=== PATIENT | female | born 1995 | race Caucasian/White ===

== ENCOUNTER 2017-09-08 01:09 | Emergency (ER) | payer SELFPAY ==
[~2017-09-08] VITALS: Ht 162.6 cm; Wt 98.3 kg
[~2017-09-08 01:09] MED LIST: DOCU-131 PO; HYDR-3240 PO; LABE200T3 PO; PREN1TAB25 PO
[2017-09-08 01:39] LABS: HCG UR LOT HCG7030192
[2017-09-08 02:18] LABS: HCG UR OBC PASS
[2017-09-08] MEDS ORDERED: SODIUM CHLORIDE 0.9% 1,000ML IVBOLUS ONE (02:30)
[2017-09-08] MEDS ORDERED: SODIUM CHLORIDE FLUSH 10ML SYR IVF ONE (02:30)
[2017-09-08 02:34] LABS: HEMATOCRIT 44.5 % (34.6-47.8); HEMOGLOBIN 15.3 g/dL (11.7-16.4)
[2017-09-08 02:42] LABS: BLOOD UREA NITROGEN 10 mg/dL (7-18)
[2017-09-08 02:47] LABS: ASPARTATE AMINO TRANSFERASE 23 U/L (15-37)
[2017-09-08 07:06] VITALS: BP 133/72
[2017-09-08] MEDS ORDERED: ACETAMINOPHEN 500 MG TABLET PO ONE (08:00)
== END 2017-09-08 08:03 | disposition home or self-care (01) ==
LOC: ED 02:12
DX: R10.2 Pelvic and perineal pain (principal)
CPT/HCPCS: 36415; 74177; 76830; 80053; 81001; 81025; 84703; 85025; 87077; 87086; 87210; 87491; 87591; 87808; 96360; 99285; J7030; 87186

== ENCOUNTER 2018-07-30 20:45 | Emergency (ER) | payer BC ==
[~2018-07-30] VITALS: Ht 162.6 cm; Wt 106.0 kg
[~2018-07-30 20:45] MED LIST changes: -LABE200T3 PO; +LABE200T6 PO
[2018-07-30 22:03] VITALS: BP 136/80
== END 2018-07-30 22:05 | disposition home or self-care (01) ==
LOC: ED 21:59
DX: O26.892 Other specified pregnancy related conditions, second trimester (principal); R10.31 Right lower quadrant pain; R10.32 Left lower quadrant pain; R10.30 Lower abdominal pain, unspecified; Z3A.15 15 weeks gestation of pregnancy; W01.0XXA Fall on same level from slipping, tripping and stumbling without subsequent striking against object, initial encounter; Y93.89 Activity, other specified; Y99.8 Other external cause status; Y92.89 Other specified places as the place of occurrence of the external cause
CPT/HCPCS: 76815; 99284

== ENCOUNTER → 2018-08-13 | Outpatient (CLI) | payer BC | END | disposition home or self-care (01) | LOC: CFH 09:45 | PROVIDERS: ATTEND Obstetrics & Gynecology | DX: Z34.80 Encounter for supervision of other normal pregnancy, unspecified trimester (principal); K80.20 Calculus of gallbladder without cholecystitis without obstruction; R16.1 Splenomegaly, not elsewhere classified; R11.0 Nausea | CPT/HCPCS: 76700 ==

== ENCOUNTER 2018-12-19 09:23 | Outpatient (CLI) | payer BC ==
[~2018-12-19] VITALS: Ht 162.6 cm; Wt 106.8 kg
[2018-12-19 09:30] VITALS: BP 134/89
[2018-12-19] MEDS ORDERED: BETAMETHASONE 6 MG/ML, 5ML IM ONE (09:48)
[2018-12-19 09:54] LABS: MICROSCOPIC AUTO
[2018-12-19 09:56] LABS: BASOPHILS # (AUTO) 0.03 x10^3/uL (0-0.1); BASOPHILS % (AUTO) 0 % (0-1); EOSINOPHILS # (AUTO) 0.04 x10^3/uL (0-0.4); EOSINOPHILS % (AUTO) 1 % (1-7); LYMPHOCYTES # (AUTO) 1.54 x10^3/uL (1-3.4); LYMPHOCYTES % (AUTO) 19 % (22-44); MD NO; MEAN CORPUSCULAR HGB CONC 34.6 g/dL (32.4-35.8); MEAN CORPUSCULAR VOLUME 80.9 fL (80-100); MEAN PLATELET VOLUME 8.3 fL (7.4-10.4); MONOCYTES # (AUTO) 0.51 x10^3/uL (0.2-0.8); MONOCYTES % (AUTO) 6 % (2-9); NEUTROPHILS # (AUTO) 6.15 x10^3/uL (1.8-6.8); NEUTROPHILS % (AUTO) 74 % (42-75); PLATELET COUNT 285 x10^3/uL (130-400); RED CELL DISTRIBUTION WIDTH 13.1 % (9.6-15.2)
[2018-12-19] MEDS ORDERED: BETAMETHASONE 6 MG/ML, 5ML IM SCH (10:00)
[2018-12-19 10:06] LABS: ALANINE AMINOTRANSFERASE 48 U/L (12-78); ALBUMIN 2.7 g/dL (3.4-5.0); ANION GAP 10 mmol/L (5-15); CALCIUM 8.2 mg/dL (8.5-10.1); CHLORIDE 107 mmol/L (98-107); CREATININE 0.61 mg/dL (0.55-1.02)
[2018-12-19 10:07] LABS: BILIRUBIN, DIRECT < 0.1 mg/dL (0.1-0.2)
[2018-12-19 10:09] LABS: ALKALINE PHOSPHATASE 180 U/L (45-117); BILIRUBIN,TOTAL 0.3 mg/dL (0.2-1.0); TOTAL PROTEIN 7.3 g/dL (6.4-8.2)
[2018-12-19 10:42] LABS: CREATININE,URINE RANDOM 59.3 mg/dL
[2018-12-20] MEDS ORDERED: PREN1TAB60 PO (09:41)
== END 2018-12-19 11:05 | disposition home or self-care (01) ==
LOC: LDOP 09:23
PROVIDERS: ATTEND Obstetrics & Gynecology
DX: O13.3 Gestational [pregnancy-induced] hypertension without significant proteinuria, third trimester (principal); Z3A.34 34 weeks gestation of pregnancy
CPT/HCPCS: 36415; 59025; 76815; 80053; 81001; 82248; 82570; 84156; 84550; 85025; 96372; 99211; J0702; G0463

== ENCOUNTER 2018-12-20 09:27 | Outpatient (CLI) | payer BC ==
[~2018-12-20] VITALS: Ht 162.6 cm; Wt 106.8 kg
[2018-12-20] MEDS ORDERED: BETAMETHASONE 6 MG/ML, 5ML IM ONE ×3 (09:30→09:50)
[2018-12-20] MEDS ORDERED: PREN1TAB60 PO (09:41)
[2018-12-20] MEDS ORDERED: PLEASE ENTER HEIGHT AND WEIGHT MC SCH (10:00)
[2018-12-20 10:01] VITALS: BP 124/81
== END 2018-12-20 10:28 | disposition home or self-care (01) ==
LOC: LDOP 09:27
PROVIDERS: ATTEND Obstetrics & Gynecology
DX: Z23 Encounter for immunization (principal); Z34.83 Encounter for supervision of other normal pregnancy, third trimester; Z3A.35 35 weeks gestation of pregnancy
CPT/HCPCS: 59025; 96372; 99211; J0702; G0463

== ENCOUNTER 2018-12-21 10:43 | Inpatient (IN) | payer BC ==
[~2018-12-21] VITALS: Ht 162.6 cm; Wt 106.8 kg
[~2018-12-21 10:43] MED LIST changes: +PREN1TAB60 PO
[2018-12-21 10:58] VITALS: BP 118/71
[2018-12-21] MEDS ORDERED: ACETAMINOPHEN 325 MG TABLET ONE (11:35)
[2018-12-21] MEDS: ACETAMINOPHEN 325 MG TABLET PO PRN (11:38)
[2018-12-21 11:53] LABS: BASOPHILS # (AUTO) 0.02 x10^3/uL (0-0.1); BASOPHILS % (AUTO) 0 % (0-1); EOSINOPHILS # (AUTO) 0.01 x10^3/uL (0-0.4); EOSINOPHILS % (AUTO) 0 % (1-7); LYMPHOCYTES # (AUTO) 1.96 x10^3/uL (1-3.4); LYMPHOCYTES % (AUTO) 20 % (22-44); MD NO; MEAN CORPUSCULAR HEMOGLOBIN 27.6 pg (27.0-34.8); MEAN CORPUSCULAR HGB CONC 34.2 g/dL (32.4-35.8); MEAN CORPUSCULAR VOLUME 80.7 fL (80-100); MONOCYTES # (AUTO) 0.82 x10^3/uL (0.2-0.8); MONOCYTES % (AUTO) 8 % (2-9); NEUTROPHILS % (AUTO) 72 % (42-75); PLATELET COUNT 289 x10^3/uL (130-400); RED BLOOD COUNT 4.47 x10^6/uL (3.82-5.3); RED CELL DISTRIBUTION WIDTH 13.1 % (9.6-15.2)
[2018-12-21 12:05] LABS: ALANINE AMINOTRANSFERASE 74 U/L (12-78); ALBUMIN 2.7 g/dL (3.4-5.0); ANION GAP 8 mmol/L (5-15); CALCIUM 8.1 mg/dL (8.5-10.1); CHLORIDE 110 mmol/L (98-107); CREATININE 0.51 mg/dL (0.55-1.02)
[2018-12-21 12:08] LABS: ALKALINE PHOSPHATASE 165 U/L (45-117); BILIRUBIN,TOTAL 0.2 mg/dL (0.2-1.0)
[2018-12-21 12:19] LABS: MICROSCOPIC INDICATED
[2018-12-21 12:20] LABS: CREATININE,URINE RANDOM 29.5 mg/dL
[2018-12-21 12:56] VITALS: BP 125/79
[2018-12-22 05:55] LABS: BASOPHILS # (AUTO) 0.02 x10^3/uL (0-0.1); BASOPHILS % (AUTO) 0 % (0-1); EOSINOPHILS # (AUTO) 0.01 x10^3/uL (0-0.4); EOSINOPHILS % (AUTO) 0 % (1-7); LYMPHOCYTES # (AUTO) 2.08 x10^3/uL (1-3.4); LYMPHOCYTES % (AUTO) 22 % (22-44); MD NO; MEAN CORPUSCULAR HEMOGLOBIN 26.7 pg (27.0-34.8); MEAN CORPUSCULAR HGB CONC 32.8 g/dL (32.4-35.8); MEAN CORPUSCULAR VOLUME 81.5 fL (80-100); MEAN PLATELET VOLUME 8.4 fL (7.4-10.4); MONOCYTES # (AUTO) 0.77 x10^3/uL (0.2-0.8); MONOCYTES % (AUTO) 8 % (2-9); NEUTROPHILS # (AUTO) 6.75 x10^3/uL (1.8-6.8); NEUTROPHILS % (AUTO) 70 % (42-75); PLATELET COUNT 292 x10^3/uL (130-400); RED BLOOD COUNT 4.83 x10^6/uL (3.82-5.3); RED CELL DISTRIBUTION WIDTH 13.2 % (9.6-15.2)
[2018-12-22 06:08] LABS: ALANINE AMINOTRANSFERASE 93 U/L (12-78); ALBUMIN 2.8 g/dL (3.4-5.0); ANION GAP 7 mmol/L (5-15); CALCIUM 8.3 mg/dL (8.5-10.1); CHLORIDE 111 mmol/L (98-107); CREATININE 0.57 mg/dL (0.55-1.02)
[2018-12-22 06:11] LABS: ALKALINE PHOSPHATASE 161 U/L (45-117); BILIRUBIN,TOTAL 0.4 mg/dL (0.2-1.0)
[2018-12-22 07:40] VITALS: BP 116/67
[2018-12-22] MEDS ORDERED: LACTATED RINGERS 1,000 ML IV SCH (08:00)
[2018-12-22] MEDS ORDERED: NITROFURANTOIN (MACROBID) 100 MG CAPSULE ONE ×2 (08:41→21:18)
[2018-12-22 08:44] LABS: INTERNATIONAL NORMALIZED RATIO 0.95 (0.93-1.1)
[2018-12-22] MEDS: NITROFURANTOIN (MACROBID) 100 MG CAPSULE PO SCH ×2 (09:05→21:20)
[2018-12-22 15:43] LABS: BASOPHILS # (AUTO) 0.02 x10^3/uL (0-0.1); BASOPHILS % (AUTO) 0 % (0-1); EOSINOPHILS # (AUTO) 0.03 x10^3/uL (0-0.4); EOSINOPHILS % (AUTO) 0 % (1-7); LYMPHOCYTES # (AUTO) 2.09 x10^3/uL (1-3.4); LYMPHOCYTES % (AUTO) 19 % (22-44); MD NO; MEAN CORPUSCULAR HEMOGLOBIN 26.8 pg (27.0-34.8); MEAN CORPUSCULAR HGB CONC 33.1 g/dL (32.4-35.8); MEAN CORPUSCULAR VOLUME 80.9 fL (80-100); MEAN PLATELET VOLUME 8.3 fL (7.4-10.4); MONOCYTES # (AUTO) 1.05 x10^3/uL (0.2-0.8); MONOCYTES % (AUTO) 9 % (2-9); NEUTROPHILS # (AUTO) 8.06 x10^3/uL (1.8-6.8); NEUTROPHILS % (AUTO) 72 % (42-75); PLATELET COUNT 319 x10^3/uL (130-400); RED BLOOD COUNT 4.93 x10^6/uL (3.82-5.3); RED CELL DISTRIBUTION WIDTH 13.5 % (9.6-15.2)
[2018-12-22 15:52] LABS: ALBUMIN 2.9 g/dL (3.4-5.0); ANION GAP 6 mmol/L (5-15); CALCIUM 8.4 mg/dL (8.5-10.1); CHLORIDE 107 mmol/L (98-107)
[2018-12-22 15:56] LABS: ALANINE AMINOTRANSFERASE 91 U/L (12-78); ALKALINE PHOSPHATASE 160 U/L (45-117); BILIRUBIN,TOTAL 0.3 mg/dL (0.2-1.0); CREATININE 0.62 mg/dL (0.55-1.02); TOTAL PROTEIN 7.3 g/dL (6.4-8.2)
[2018-12-22] MEDS: SODIUM CHLORIDE FLUSH 3ML SYRINGE IVF SCH ×2 (16:13→21:16)
[2018-12-22] MEDS ORDERED: ACETAMINOPHEN 325 MG TABLET ONE (21:21)
[2018-12-22] MEDS: ACETAMINOPHEN 325 MG TABLET PO PRN (21:22)
[2018-12-23 05:19] LABS: BASOPHILS # (AUTO) 0.03 x10^3/uL (0-0.1); BASOPHILS % (AUTO) 0 % (0-1); EOSINOPHILS # (AUTO) 0.05 x10^3/uL (0-0.4); EOSINOPHILS % (AUTO) 1 % (1-7); LYMPHOCYTES # (AUTO) 1.62 x10^3/uL (1-3.4); LYMPHOCYTES % (AUTO) 19 % (22-44); MD NO; MEAN CORPUSCULAR HEMOGLOBIN 27.9 pg (27.0-34.8); MEAN CORPUSCULAR HGB CONC 34.6 g/dL (32.4-35.8); MEAN CORPUSCULAR VOLUME 80.6 fL (80-100); MEAN PLATELET VOLUME 8.2 fL (7.4-10.4); MONOCYTES # (AUTO) 0.72 x10^3/uL (0.2-0.8); MONOCYTES % (AUTO) 9 % (2-9); NEUTROPHILS # (AUTO) 5.93 x10^3/uL (1.8-6.8); NEUTROPHILS % (AUTO) 71 % (42-75); PLATELET COUNT 246 x10^3/uL (130-400); RED BLOOD COUNT 4.58 x10^6/uL (3.82-5.3); RED CELL DISTRIBUTION WIDTH 13.6 % (9.6-15.2)
[2018-12-23 05:32] LABS: ALANINE AMINOTRANSFERASE 80 U/L (12-78); ALBUMIN 2.7 g/dL (3.4-5.0); ANION GAP 9 mmol/L (5-15); CALCIUM 8.2 mg/dL (8.5-10.1); CHLORIDE 109 mmol/L (98-107); CREATININE 0.52 mg/dL (0.55-1.02)
[2018-12-23 05:35] LABS: ALKALINE PHOSPHATASE 162 U/L (45-117); BILIRUBIN,TOTAL 0.3 mg/dL (0.2-1.0); TOTAL PROTEIN 6.8 g/dL (6.4-8.2)
[2018-12-23 07:55] VITALS: BP 126/81
[2018-12-23] MEDS ORDERED: NITROFURANTOIN (MACROBID) 100 MG CAPSULE ONE (08:37)
[2018-12-23] MEDS: SODIUM CHLORIDE FLUSH 3ML SYRINGE IVF SCH (08:41)
[2018-12-23] MEDS: NITROFURANTOIN (MACROBID) 100 MG CAPSULE PO SCH (08:41)
[2018-12-23] MEDS ORDERED: ACETAMINOPHEN 325 MG TABLET ONE (08:51)
[2018-12-23] MEDS: ACETAMINOPHEN 325 MG TABLET PO PRN (08:53)
[2018-12-23] MEDS ORDERED: NITR100C56 PO (13:26)
== END 2018-12-23 13:48 | disposition home or self-care (01) | DRG 833 ==
LOC: LDOP 10:43 → LDIP 12:39 → OBSVTOIN 12:39
PROVIDERS: ADMIT Obstetrics & Gynecology; ATTEND Obstetrics & Gynecology
DX: O26.893 Other specified pregnancy related conditions, third trimester (principal); O23.43 Unspecified infection of urinary tract in pregnancy, third trimester; R51 Headache; Z3A.35 35 weeks gestation of pregnancy; Z82.3 Family history of stroke; Z83.3 Family history of diabetes mellitus
CPT/HCPCS: 36415; 76805; 80053; 80074; 81001; 81050; 82570; 82962; 84156; 84550; 85025; 85610; 85730; 86850; 86900; G0378; J7120

== ENCOUNTER 2018-12-25 16:16 | Outpatient (CLI) | payer BC ==
[~2018-12-25] VITALS: Ht 162.6 cm; Wt 107.3 kg
[~2018-12-25 16:16] MED LIST changes: +NITR100C56 PO
[2018-12-25 16:30] VITALS: BP 129/69
[2018-12-25 16:40] LABS: MICROSCOPIC AUTO
[2018-12-25 16:57] LABS: ALANINE AMINOTRANSFERASE 57 U/L (12-78); ALBUMIN 2.6 g/dL (3.4-5.0); ANION GAP 9 mmol/L (5-15); CALCIUM 8.6 mg/dL (8.5-10.1); CHLORIDE 108 mmol/L (98-107); CREATININE 0.58 mg/dL (0.55-1.02)
[2018-12-25 16:58] LABS: BILIRUBIN, DIRECT < 0.1 mg/dL (0.1-0.2)
[2018-12-25 16:59] LABS: ALKALINE PHOSPHATASE 198 U/L (45-117); BILIRUBIN,TOTAL 0.2 mg/dL (0.2-1.0); TOTAL PROTEIN 7.2 g/dL (6.4-8.2)
[2018-12-25 17:02] LABS: BASOPHILS # (AUTO) 0.02 x10^3/uL (0-0.1); BASOPHILS % (AUTO) 0 % (0-1); EOSINOPHILS # (AUTO) 0.18 x10^3/uL (0-0.4); EOSINOPHILS % (AUTO) 2 % (1-7); LYMPHOCYTES # (AUTO) 1.81 x10^3/uL (1-3.4); LYMPHOCYTES % (AUTO) 22 % (22-44); MD NO; MEAN CORPUSCULAR HEMOGLOBIN 27.4 pg (27.0-34.8); MEAN CORPUSCULAR HGB CONC 34.4 g/dL (32.4-35.8); MEAN CORPUSCULAR VOLUME 79.7 fL (80-100); MEAN PLATELET VOLUME 8.4 fL (7.4-10.4); MONOCYTES # (AUTO) 0.55 x10^3/uL (0.2-0.8); MONOCYTES % (AUTO) 7 % (2-9); NEUTROPHILS # (AUTO) 5.75 x10^3/uL (1.8-6.8); NEUTROPHILS % (AUTO) 69 % (42-75); PLATELET COUNT 296 x10^3/uL (130-400); RED BLOOD COUNT 4.84 x10^6/uL (3.82-5.3); RED CELL DISTRIBUTION WIDTH 13.4 % (9.6-15.2)
== END 2018-12-25 17:28 | disposition home or self-care (01) ==
LOC: LDOP 16:16
PROVIDERS: ATTEND Obstetrics & Gynecology
DX: O13.3 Gestational [pregnancy-induced] hypertension without significant proteinuria, third trimester (principal); Z3A.35 35 weeks gestation of pregnancy
CPT/HCPCS: 36415; 59025; 80053; 81001; 82248; 82570; 84156; 84550; 85025; 99211; G0463

== ENCOUNTER 2019-01-03 07:53 | Inpatient (IN) | payer BC ==
[~2019-01-03] VITALS: Ht 162.6 cm; Wt 106.8 kg
[2019-01-03 08:05] VITALS: BP 132/79
[2019-01-03] MEDS ORDERED: CEFAZOLIN PMX 1GM/50ML 50 ML IVPB ONE (08:30)
[2019-01-03] MEDS ORDERED: METOCLOPRAMIDE 5 MG/ML, 2ML IV ONE (08:30)
[2019-01-03] MEDS ORDERED: LACTATED RINGERS 1,000 ML IVBOLUS ONE ×2 (08:30)
[2019-01-03] MEDS ORDERED: SODIUM CITRATE/CITRIC ACID 30 ML UDC PO ONE (08:30)
[2019-01-03 08:40] LABS: BASOPHILS # (AUTO) 0.03 x10^3/uL (0-0.1); BASOPHILS % (AUTO) 0 % (0-1); EOSINOPHILS # (AUTO) 0.07 x10^3/uL (0-0.4); EOSINOPHILS % (AUTO) 1 % (1-7); LYMPHOCYTES # (AUTO) 1.22 x10^3/uL (1-3.4); LYMPHOCYTES % (AUTO) 12 % (22-44); MD NO; MEAN CORPUSCULAR HEMOGLOBIN 26.7 pg (27.0-34.8); MEAN CORPUSCULAR HGB CONC 33.7 g/dL (32.4-35.8); MEAN CORPUSCULAR VOLUME 79.3 fL (80-100); MEAN PLATELET VOLUME 8.1 fL (7.4-10.4); MONOCYTES # (AUTO) 0.46 x10^3/uL (0.2-0.8); MONOCYTES % (AUTO) 4 % (2-9); NEUTROPHILS # (AUTO) 8.64 x10^3/uL (1.8-6.8); NEUTROPHILS % (AUTO) 83 % (42-75); PLATELET COUNT 300 x10^3/uL (130-400); RED BLOOD COUNT 4.95 x10^6/uL (3.82-5.3); RED CELL DISTRIBUTION WIDTH 13.5 % (9.6-15.2)
[2019-01-03] MEDS ORDERED: NEWBORN KIT ONE (09:06)
[2019-01-03] MEDS ORDERED: OXYTOCIN 30U/ 0.9% NaCL 500ML 500 ML ONE ×2 (09:06→09:30)
[2019-01-03] MEDS ORDERED: ONDANSETRON 2MG/ML, 2ML ONE (09:10)
[2019-01-03] MEDS ORDERED: CEFAZOLIN 1,000 MG ONE (09:10)
[2019-01-03] MEDS ORDERED: OXYTOCIN 10 UNITS/ML, 1ML ONE (09:10)
[2019-01-03] MEDS ORDERED: HYDROmorphone 2 MG/ML, 1ML ONE (09:11)
[2019-01-03] MEDS ORDERED: FENTANYL PF 100 MCG/2ML ONE (09:11)
[2019-01-03] MEDS ORDERED: SODIUM CHLORIDE 0.9% PF 10ML ONE ×2 (09:12)
[2019-01-03] MEDS ORDERED: METOCLOPRAMIDE 5 MG/ML, 2ML ONE (09:30)
[2019-01-03] MEDS ORDERED: SODIUM CITRATE/CITRIC ACID 30 ML UDC ONE (09:30)
[2019-01-03] MEDS ORDERED: EPHEDRINE 50 MG/ML, 1ML ONE (09:52)
[2019-01-03] MEDS ORDERED: DIPHENHYDRAMINE 50 MG/ML, 1ML ONE (09:52)
[2019-01-03] MEDS: LACTATED RINGERS 1,000 ML IV SCH ×4 (10:44→20:44)
[2019-01-03] MEDS ORDERED: METHYLERGONOVINE 0.2 MG/ML IM ONE (10:57)
[2019-01-03] MEDS ORDERED: OXYcodone IR 5MG TABLET PO PRN (11:00)
[2019-01-03] MEDS ORDERED: morphine SULFATE 10 MG/ML, 1ML IM PRN (11:00)
[2019-01-03] MEDS ORDERED: METHYLERGONOVINE 0.2 MG/ML IM PRN (11:00)
[2019-01-03] MEDS ORDERED: MISOPROSTOL 200 MCG TABLET PR PRN (11:00)
[2019-01-03] MEDS ORDERED: MEPERIDINE/PF 50 MG/ML IVPush PRN (11:00)
[2019-01-03] MEDS ORDERED: ONDANSETRON 2MG/ML, 2ML IV PRN (11:00)
[2019-01-03] MEDS: OXYTOCIN 30U/ 0.9% NaCL 500ML 500 ML IV SCH ×2 (11:02→20:44)
[2019-01-03 12:06] LABS: ALANINE AMINOTRANSFERASE 76 U/L (12-78); ALBUMIN 2.7 g/dL (3.4-5.0); ANION GAP 9 mmol/L (5-15); CALCIUM 8.4 mg/dL (8.5-10.1); CHLORIDE 111 mmol/L (98-107); CREATININE 0.52 mg/dL (0.55-1.02)
[2019-01-03 12:08] LABS: ALKALINE PHOSPHATASE 201 U/L (45-117); BILIRUBIN,TOTAL 0.3 mg/dL (0.2-1.0); TOTAL PROTEIN 7.4 g/dL (6.4-8.2)
[2019-01-03 12:10] LABS: MICROSCOPIC AUTO
[2019-01-03 12:21] LABS: CREATININE,URINE RANDOM 15.6 mg/dL
[2019-01-03] MEDS ORDERED: GUAIFENESIN 100 MG/5 ML, 5ML UDC PO PRN (12:30)
[2019-01-03 13:30] VITALS: BP 132/79
[2019-01-03] MEDS: KETOROLAC 30 MG/1 ML IV SCH ×3 (13:59→23:53)
[2019-01-03] MEDS: OXYcodone IR 5MG TABLET PO PRN ×3 (13:59→21:56)
[2019-01-03 16:08] VITALS: BP 125/85
[2019-01-03 21:00] VITALS: BP 117/79
[2019-01-03 22:53] LABS: BASOPHILS # (AUTO) 0.02 x10^3/uL (0-0.1); BASOPHILS % (AUTO) 0 % (0-1); EOSINOPHILS # (AUTO) 0.09 x10^3/uL (0-0.4); EOSINOPHILS % (AUTO) 1 % (1-7); LYMPHOCYTES # (AUTO) 2.04 x10^3/uL (1-3.4); LYMPHOCYTES % (AUTO) 26 % (22-44); MD NO; MEAN CORPUSCULAR HEMOGLOBIN 27.1 pg (27.0-34.8); MEAN CORPUSCULAR HGB CONC 33.9 g/dL (32.4-35.8); MEAN PLATELET VOLUME 7.9 fL (7.4-10.4); MONOCYTES % (AUTO) 6 % (2-9); NEUTROPHILS # (AUTO) 5.14 x10^3/uL (1.8-6.8); NEUTROPHILS % (AUTO) 66 % (42-75); PLATELET COUNT 231 x10^3/uL (130-400); RED CELL DISTRIBUTION WIDTH 13.4 % (9.6-15.2)
[2019-01-04] VITALS: BP 115/78
[2019-01-04] MEDS: LACTATED RINGERS 1,000 ML IV SCH ×5 (02:44→16:47)
[2019-01-04] MEDS: OXYcodone IR 5MG TABLET PO PRN ×4 (03:54→19:43)
[2019-01-04 04:00] VITALS: BP 109/74
[2019-01-04] MEDS: KETOROLAC 30 MG/1 ML IV SCH ×2 (05:59→11:57)
[2019-01-04] MEDS: OXYTOCIN 30U/ 0.9% NaCL 500ML 500 ML IV SCH ×2 (06:44→16:47)
[2019-01-04 07:50] VITALS: BP 112/73
[2019-01-04] MEDS: PRENATAL VIT/IRON/FA 1 EACH TABLET PO SCH (08:46)
[2019-01-04 13:00] VITALS: BP 118/76
[2019-01-04 17:36] VITALS: BP 129/86
[2019-01-04] MEDS ORDERED: IBUPROFEN 800 MG TABLET ONE (18:03)
[2019-01-04] MEDS: IBUPROFEN 800 MG TABLET PO PRN (18:06)
[2019-01-04 19:50] VITALS: BP 131/87
[2019-01-05] MEDS: IBUPROFEN 800 MG TABLET PO PRN ×2 (02:00→10:57)
[2019-01-05] MEDS: PRENATAL VIT/IRON/FA 1 EACH TABLET PO SCH (08:11)
[2019-01-05] MEDS: OXYcodone IR 5MG TABLET PO PRN ×2 (08:17→13:36)
[2019-01-05 09:00] VITALS: BP 120/82
[2019-01-05] MEDS ORDERED: DOCUSATE 100 MG CAPSULE PO SCH (09:00)
[2019-01-05] MEDS ORDERED: DOCUSATE 50 MG/5 ML, 10ML UDC PO SCH (09:00)
[2019-01-05] MEDS ORDERED: IBUPROFEN 800 MG TABLET PO PRN (11:00)
[2019-01-05] MEDS ORDERED: OXYC-302 PO (16:25)
[2019-01-05] MEDS ORDERED: IBUP-1222 PO (16:25)
== END 2019-01-05 17:30 | disposition home or self-care (01) | DRG 788 ==
LOC: LDIP 07:53 → 2NW 12:36
PROVIDERS: ADMIT Obstetrics & Gynecology; ATTEND Obstetrics & Gynecology
PROC: 10D00Z1 Extraction of Products of Conception, Low, Open Approach (ICD-10-PCS; principal; 2019-01-03)
DX: O34.211 Maternal care for low transverse scar from previous cesarean delivery (principal); Z3A.37 37 weeks gestation of pregnancy; Z37.0 Single live birth; O24.420 Gestational diabetes mellitus in childbirth, diet controlled; O13.4 Gestational [pregnancy-induced] hypertension without significant proteinuria, complicating childbirth
CPT/HCPCS: 36415; 80053; 81001; 82570; 84156; 84550; 85025; 86850; 86900; G0378; J0690; J1170; J1885; J2405; J3010; J1200; J2590; J2765; J7120

== ENCOUNTER 2019-04-15 12:36 | Emergency (ER) | payer BC ==
[~2019-04-15] VITALS: Ht 162.6 cm; Wt 104.0 kg
[~2019-04-15 12:36] MED LIST changes: +IBUP-1222 PO; +OXYC-302 PO
[2019-04-15 12:44] VITALS: BP 141/89
[2019-04-15 13:32] LABS: MICROSCOPIC AUTO
[2019-04-15 13:36] LABS: CULTURE INDICATED? YES
[2019-04-15 14:41] LABS: BASOPHILS # (AUTO) 0.03 x10^3/uL (0-0.1); BASOPHILS % (AUTO) 0 % (0-1); EOSINOPHILS # (AUTO) 0.08 x10^3/uL (0-0.4); EOSINOPHILS % (AUTO) 1 % (1-7); LYMPHOCYTES # (AUTO) 1.88 x10^3/uL (1-3.4); LYMPHOCYTES % (AUTO) 17 % (22-44); MD NO; MEAN CORPUSCULAR HEMOGLOBIN 27.8 pg (27.0-34.8); MEAN CORPUSCULAR HGB CONC 33.5 g/dL (32.4-35.8); MEAN CORPUSCULAR VOLUME 82.9 fL (80-100); MEAN PLATELET VOLUME 7.7 fL (7.4-10.4); MONOCYTES # (AUTO) 0.48 x10^3/uL (0.2-0.8); MONOCYTES % (AUTO) 4 % (2-9); NEUTROPHILS # (AUTO) 8.63 x10^3/uL (1.8-6.8); NEUTROPHILS % (AUTO) 78 % (42-75); PLATELET COUNT 300 x10^3/uL (130-400); RED BLOOD COUNT 5.25 x10^6/uL (3.82-5.3); RED CELL DISTRIBUTION WIDTH 13.1 % (9.6-15.2)
[2019-04-15 14:48] LABS: ALANINE AMINOTRANSFERASE 383 U/L (12-78); ALBUMIN 4.2 g/dL (3.4-5.0); ANION GAP 8 mmol/L (5-15); CHLORIDE 106 mmol/L (98-107); CREATININE 0.62 mg/dL (0.55-1.02)
[2019-04-15 14:50] LABS: ALKALINE PHOSPHATASE 126 U/L (45-117); BILIRUBIN,TOTAL 0.6 mg/dL (0.2-1.0); TOTAL PROTEIN 8.5 g/dL (6.4-8.2)
--- NOTE | 2019-04-15 14:59 | NUR ---
ASSESSMENT COMPLETE AT THIS TIME. MD TORRES COMPLETE. US AT [facility]. PT IN BED, CALL LIGHT IN REACH AND WARM BLANKET PROVIDED.
[2019-04-15 15:19] LABS: HCG UR SG 1.019 (1.003-1.030)
== END 2019-04-15 16:46 | disposition home or self-care (01) ==
LOC: ED 15:38
DX: R10.13 Epigastric pain (principal)
CPT/HCPCS: 36415; 76700; 80053; 81001; 81025; 83690; 85025; 87077; 87086; 87186; 99284